=== PATIENT | female | born 1995 | race American Indian/Alaskan Native ===

== ENCOUNTER 2021-07-31 18:52 | Emergency (ER) | payer SELFPAY ==
[2021-07-31 19:00] VITALS: BP 129/85
[2021-07-31] MEDS ORDERED: diphenhydrAMINE 25 MG CAP PO ONE (19:02)
== END 2021-08-01 01:39 | disposition left against medical advice (07) ==
LOC: ED 18:52
DX: T78.40XA Allergy, unspecified, initial encounter (principal); Z53.21 Procedure and treatment not carried out due to patient leaving prior to being seen by health care provider; X58.XXXA Exposure to other specified factors, initial encounter